=== PATIENT | male | born 1990 | race Caucasian/White ===

== ENCOUNTER 2020-01-30 08:45 | Emergency (ER) | payer SELFPAY ==
[2020-01-30 09:19] VITALS: BP 138/77
== END 2020-01-30 09:19 | disposition left against medical advice (07) | DRG 914 ==
LOC: ED 08:45
DX: S39.848A Other specified injuries of external genitals, initial encounter (principal); X58.XXXA Exposure to other specified factors, initial encounter; Y92.003 Bedroom of unspecified non-institutional (private) residence as the place of occurrence of the external cause; Z91.19 Patient's noncompliance with other medical treatment and regimen